=== PATIENT | female | born 1985 | race African-American/Black ===

== ENCOUNTER 2017-03-09 18:05 | Emergency (ER) | payer OTHER ==
[2017-03-09 18:24] LABS: Bilirubin Negative (Negative); Blood, Urine Small (Negative); Glucose, Urine (Dipstick) Negative (Negative); Leukocyte Small (Negative); Nitrite Negative (Negative); Protein, Urine (Dipstick) Trace mg/dL (Neg-Trace); Urobilinogen 0.2 mg/dL (0.2-1.0)
[2017-03-09 18:29] LABS: Clarity SL Hazy (Clear)
[2017-03-09 18:33] LABS: Bacteria/HPF 2+ HPF (None Seen); Squamous Epithelial 0-3 HPF (0-3)
[2017-03-09] MEDS ORDERED: Cephalexin 250 MG CAP ONE (18:49)
== END 2017-03-09 19:00 | disposition home or self-care (01) ==
LOC: NAV ERS 18:05
DX: N39.0 Urinary tract infection, site not specified (principal); F17.210 Nicotine dependence, cigarettes, uncomplicated
CPT/HCPCS: 81003; 81015; 87077; 87086; 99283

== ENCOUNTER 2022-01-16 15:19 | Emergency (ER) | payer OTHER | END 2022-01-16 16:07 | disposition home or self-care (01) | LOC: NAV ERS 15:19 | DX: U07.1 COVID-19 (principal); F17.210 Nicotine dependence, cigarettes, uncomplicated | CPT/HCPCS: 99283; U0003; U0005 ==

== ENCOUNTER 2023-08-07 13:01 | Emergency (ER) | payer SELFPAY ==
[2023-08-07] MEDS ORDERED: Cyclobenzaprine 10 MG TAB ONE (13:25)
[2023-08-07] MEDS ORDERED: Ibuprofen 800 MG TAB ONE (13:25)
== END 2023-08-07 13:33 | disposition home or self-care (01) ==
LOC: NAV ERS 13:01
DX: S13.4XXA Sprain of ligaments of cervical spine, initial encounter (principal); G44.309 Post-traumatic headache, unspecified, not intractable; V43.52XA Car driver injured in collision with other type car in traffic accident, initial encounter
CPT/HCPCS: 99283

== ENCOUNTER 2025-06-27 15:26 | Emergency (ER) | payer BC | END 2025-06-27 16:20 | disposition home or self-care (01) | LOC: NAV ERS 15:26 | DX: J06.9 Acute upper respiratory infection, unspecified (principal); F17.290 Nicotine dependence, other tobacco product, uncomplicated; Z79.3 Long term (current) use of hormonal contraceptives | CPT/HCPCS: 99283 ==